=== PATIENT | male | born 1955 | race Caucasian/White ===

== ENCOUNTER → 2022-03-21 | Outpatient (CLI) | payer MEDICARE ==
[~2022-03-21] MED LIST: ACCU-CHEK1 EACH MC; AZITHROMYCIN250 MG PO; DECADRON6 MG PO; GLIMEPIRIDE4 MG PO; GLUCOPHAGE1000 MG PO; HUMALOG 10100 UNITS/ SC; IMODIUM CAP 2 MG2 MG PO; INSULIN PEN NE1 EAC1 MC; LANTUS INS100 UTS/M1 SQ; OMNICEF 300 MG300 MG PO; PHOS-NAK PACKET1 EA PO
[2022-03-21 10:39] LABS: HEMOGLOBIN 16.9 gm/dl (14.0-17.5); RED BLOOD COUNT 5.42 M/UL (4.20-5.50); WHITE BLOOD COUNT 6.9 K/UL (4.5-11.0)
[2022-03-21 11:03] LABS: BUN/CREATININE RATIO 20 (0-10)
== END ==
LOC: LAB 10:05
PROVIDERS: Emergency Medicine
DX: E11.65 Type 2 diabetes mellitus with hyperglycemia (principal); M15.8 Other polyosteoarthritis; M79.18 Myalgia, other site
CPT/HCPCS: 80053; 83036; 84443; 84550; 85025